=== PATIENT | male | born 1975 | race Caucasian/White ===

== ENCOUNTER 2025-07-23 09:43 | Outpatient (OUT) | payer BC, SELFPAY ==
--- NOTE | 2025-07-23 | XR_ITS ---
The [address] [address] Patient Name: STAN GOODRICH MRN: [id number] date: 1975 Sex: M Assigned Patient Location: [facility] Current Patient Location: [facility] Accession/Order Number: [id number] Exam Date: 07/23/2025 11:30 Report Date: 07/23/2025 11:47 At the request of: FARRAH BROWN DO Procedure: XR knee LT 4V LEFT KNEE - 4 views COMPARISON: None CLINICAL DATA: Chronic left knee pain around the patella. AP, lateral, tunnel and patellar views were obtained. There is no acute fracture or dislocation. No patellar subluxation is seen. No disproportionate joint space narrowing is identified. There is minor squaring off the articular margins. There is a trace amount joint fluid. No focal soft tissue swelling is noted. XR/XR knee LT 4V IMPRESSION: NO ACUTE BONY FINDINGS. Impression dictated by: Martha Vega M.D. 07/23/2025 11:47 AM Dictation Location: [place] [address] Electronically authenticated by: [id number] Date: 07/23/2025 11:47
== END 2025-07-23 09:44 | disposition home or self-care (01) ==
LOC: RAD 09:43
PROVIDERS: PCP Family Medicine; Visit Provider Orthopaedic Surgery Orthopaedic Trauma
DX: M25.562 Pain in left knee (principal)
CPT/HCPCS: 73564